=== PATIENT | female | born 1965 | race Caucasian/White ===

== ENCOUNTER 2017-03-07 13:28 | Emergency (ER) | payer MEDICAID ==
[~2017-03-07] VITALS: Ht 144.8 cm; Wt 77.1 kg
[~2017-03-07 13:28] MED LIST: HCTZ PO; IBUPROFEN PO; ULTRAM PO; VISTARIL PO; WELLBUTRIN SR PO
== END 2017-03-07 18:42 | disposition home or self-care (01) ==
LOC: CED 13:28
DX: I10 Essential (primary) hypertension (principal); F41.9 Anxiety disorder, unspecified; Z90.710 Acquired absence of both cervix and uterus
CPT/HCPCS: 99283